=== PATIENT | male | born 1950 | race Caucasian/White ===

== ENCOUNTER 2019-01-01 09:47 | Emergency (ER) | payer BC, MEDICARE ==
[2019-01-01] MEDS ORDERED: Pepcid 20 MG VIAL IV ONE ×2 (10:02→10:14)
[2019-01-01] MEDS ORDERED: Sodium Chloride 0.9% 1000 ML 1,000 ML IV STA (10:02)
[2019-01-01] MEDS ORDERED: MORPHINE SULFATE 4 MG INJ IV ONE (10:02)
[2019-01-01] MEDS ORDERED: Zofran 4 MG/2 ML VIAL IV ONE (10:02)
[2019-01-01 10:11] LABS: Lactic Acid 1.9 (0.4-2.0)
[2019-01-01 10:12] LABS: BASOPHIL % 0.3 % (0.0-0.4); Basophil (Absolute #) 0.02 (0-0.4); Eosinophil % 4.5 % (0.00-5.0); Granulocyte Absolute (ANC) 3.61 (1.4-6.9); Granulocytes % 53.8 % (36.0-66.0); Hematocrit 50.3 % (42-50); Hemoglobin 17.6 gm/dl (12.5-18.0); Lymphocyte (Absolute #) 2.04 (1.0-4.6); Lymphocytes % 30.4 % (24.0-44.0); Mean Cell Volume 98.1 fl (78-100); Mean Corpuscular Hemoglobin 34.3 pg (26-32); Mean Platelet Volume 10.4 fl (6-9.5); Monocyte (Absolute #) 0.74 (0.0-1.3); Platelet Count 164 K/mm3 (150-450); Red Blood Count 5.13 M/mm3 (4.1-5.6); Red Cell Distribution Width 11.9 % (11.5-14.0); White Blood Count 6.7 K/mm3 (4.0-10.5)
--- NOTE | 2019-01-01 10:12 | ERPHSYRPT ---
- History of Present Illness Time Seen by Provider: 01/01/19 10:05 Historian: patient Exam Limitations: no limitations Physician History: Patient began having sudden, severe RUQ abdominal pain one hour prior to coming into the emergency department. Timing/Duration: today, hour(s) (1) Activities at Onset: none Quality: sharpness, stabbing Abdominal Pain Onset Location: RUQ Pain Radiation: no radiation Severity of Pain-Max: severe Severity of Pain-Current: moderate Modifying Factors: Improves With: nothing. Worsens With: breathing, defecating , eating, movement, rest, vomiting Associated Symptoms: nausea, vomiting, No back, No chest pain, No diaphoresis, No diarrhea, No fever/chills, No fatigue, No headache, No heartburn, No loss of appetite, No neck pain, No rash, No shortness of breath, No syncope, No testicular pain, No weakness Previous symptoms: no prior history Allergies/Adverse Reactions: No Known Drug Allergies Allergy (Unverified 01/01/19 10:31) Home Medications: Atorvastatin Calcium [Lipitor] 40 mg PO DAILY 01/01/19 [History] Doxazosin Mesylate [Cardura] 4 mg PO DAILY 01/01/19 [History] Empagliflozin/Metformin HCl [Synjardy 5-500 mg Tablet] 10 mg PO DAILY 01/01/19 [ History] Meloxicam 15 mg PO DAILY 01/01/19 [History] Omeprazole 20 mg PO DAILY 01/01/19 [History] Propranolol HCl 60 mg PO DAILY 01/01/19 [History] Tamsulosin HCl 0.4 mg PO DAILY 01/01/19 [History] Testosterone Cypionate 60 mg IJ WEEKLY 01/01/19 [History] Tramadol HCl 50 mg [Ultram 50 mg] 50 mg PO HS 01/01/19 [History] - Review of Systems Constitutional: No Fever, No Chills Eyes: No Symptoms Ears, Nose, & Throat: No Symptoms Respiratory: No Cough, No Dyspnea Cardiac: No Chest Pain, No Edema, No Syncope Abdominal/Gastrointestinal: Abdominal Pain, Nausea, Vomiting, No Diarrhea Genitourinary Symptoms: No Dysuria Musculoskeletal: No Back Pain, No Neck Pain Skin: No Rash Neurological: No Dizziness, No Focal Weakness, No Sensory Changes Psychological: No Symptoms, No Alcohol Abuse, No Anxiety Endocrine: No Polyuria, No Polydipsia Hematologic/Lymphatic: No Easy Bleeding, No Easy Bruising All Other Systems: Reviewed and Negative - Nursing Vital Signs Nursing Vital Signs: Initial Vital Signs Temperature 97.6 F 01/01/19 09:56 Pulse Rate 60 01/01/19 09:56 Respiratory Rate 18 01/01/19 09:56 Blood Pressure 173/91 01/01/19 09:56 O2 Sat by Pulse Oximetry 99 01/01/19 09:56 Pain Scale Pain Intensity 3 - Physical Exam General Appearance: no apparent distress, alert Eye Exam: PERRL/EOMI, eyes nml inspection, No scleral icterus Ears, Nose, Throat Exam: normal ENT inspection, pharynx normal, moist mucous membranes, No dry mucous membranes Neck Exam: normal inspection, non-tender, supple, full range of motion Respiratory Exam: normal breath sounds, lungs clear, No respiratory distress Cardiovascular Exam: regular rate/rhythm, normal heart sounds, normal peripheral pulses, capillary refill <2 sec Gastrointestinal/Abdomen Exam: soft, tenderness (RUQ), No distention, No mass, No guarding, No rebound, No hernia (bilateral inguinal and ventral areas of the abdomen are negative ) Back Exam: normal inspection, normal range of motion, No CVA tenderness, No vertebral tenderness Extremity Exam: normal inspection, normal range of motion, pelvis stable Neurologic Exam: alert, oriented x 3, cooperative, normal mood/affect, nml cerebellar function, sensation nml, No motor deficits Skin Exam: normal color, warm, dry - Course Nursing assessment & vital signs reviewed: Yes EKG Interpreted by Me: RATE (62), Sinus Rhythm, NORMAL AXIS, NORMAL INTERVALS, NORMAL QRS, NORMAL ST-T, Other (possible signs of olf inferior myocardial infarction, negative previous EKG for comparison) - CT Exams Abdomen/Pelvis CT Interpretation: Tele-radiologist Report, Other (per radiologist interpretation: The kidneys and ureter: There is mild right hydronephrosis and hydroureter to 4 mm right UVJ calculus which is present on the library assistant radiograph. There is evidence of right calyceal/forniceal rupture with focal fluid surrounding the proximal right ureter. I believe imaging, there is a long a region of low attenuation in the right renal pelvis extending into the proximal ureter which may secondary to extravasation of street at contrast done in the proximal ureter. There are punctate nonobstructive right and left renal calculi. There is a 3.3 cm right renal cyst. There is diverticulosis the left colon but mostly focally in the sigmoid. No evidence of appendicitis. Unremarkable intraperitoneal space with no free air or significant fluid collection. There is atherosclerotic disease involving the abdominal aorta and pelvis vessels about an aneurysm. Gallbladder, liver, pancreas, spleen and adrenals are negative for any acute abnormalities. bladder; moderately enlarged prostate; degenerative changes the lumbar spine; moderate-sized fat- containing left inguinal hernia. Overall impression: There is a junction of the right kidney from a 4 mm right UVJ calculus. There is evidence of extravasation of the contrast, as a rule and/or/or stent placement should be considered. Nonobstructing renal calculi.) Ordered Tests: Active Orders 24 hr Category Date Time Status EKG-ER Only STAT Care 01/01/19 10:02 Active IV Insertion STAT Care 01/01/19 10:02 Active NPO (ED) STAT Care 01/01/19 10:02 Active ABDOMEN AND PELVIS W CONTRAST [CT] Stat Exams 01/01/19 11:41 Taken AMYLASE Stat Lab 01/01/19 10:09 Completed CBC W DIFF Stat Lab 01/01/19 10:09 Completed CMP Stat Lab 01/01/19 10:09 Completed LIPASE Stat Lab 01/01/19 10:09 Completed Lactic Acid Stat Lab 01/01/19 10:02 Completed PROTIME WITH INR Stat Lab 01/01/19 10:09 Completed TROPONIN Q3H Lab 01/01/19 10:09 Completed TROPONIN Q3H Lab 01/01/19 13:15 Ordered TROPONIN Q3H Lab 01/01/19 16:15 Ordered TROPONIN Q3H Lab 01/01/19 19:15 Ordered TROPONIN Q3H Lab 01/01/19 22:15 Ordered UA W/RFX UR CULTURE Stat Lab 01/01/19 11:05 Completed Medication Summary Discontinued Medications Generic Name Dose Route Start Last Admin Trade Name Freq PRN Reason Stop Dose Admin Famotidine 20 mg 01/01/19 10:02 01/01/19 10:20 Pepcid 20 Mg Vial IV 01/01/19 10:03 20 mg STAT ONE Administration Famotidine Confirm 01/01/19 10:14 Pepcid 20 Mg Vial Administered 01/01/19 10:15 Dose 20 mg IV .STK-MED ONE Fentanyl Citrate 25 mcg 01/01/19 10:34 01/01/19 11:12 Sublimaze 100 Mcg/2 Ml IV 01/01/19 10:35 25 mcg STAT ONE Administration Fentanyl Citrate Confirm 01/01/19 11:10 Sublimaze 100 Mcg/2 Ml Administered 01/01/19 11:11 Dose 100 mcg .ROUTE .STK-MED ONE Sodium Chloride 1,000 mls @ 999 mls/hr 01/01/19 10:02 01/01/19 13:18 Sodium Chloride 0.9% 1000 Ml IV 01/01/19 11:02 Infused .Q1H1M STA Infusion Sodium Chloride Confirm 01/01/19 10:14 Sodium Chloride 0.9% 1000 Ml Administered 01/01/19 10:15 Dose 1,000 mls @ ud .ROUTE .STK-MED ONE Morphine Sulfate 4 mg 01/01/19 10:02 01/01/19 10:19 Morphine Sulfate 4 Mg Inj IV 01/01/19 10:03 4 mg STAT ONE Administration Morphine Sulfate Confirm 01/01/19 10:14 Morphine Sulfate 4 Mg Inj Administered 01/01/19 10:15 Dose 4 mg .ROUTE .STK-MED ONE Ondansetron HCl 4 mg 01/01/19 10:02 01/01/19 10:20 Zofran 4 Mg/2 Ml Vial IV 01/01/19 10:03 4 mg STAT ONE Administration Ondansetron HCl Confirm 01/01/19 10:13 Zofran 4 Mg/2 Ml Vial Administered 01/01/19 10:14 Dose 4 mg .ROUTE .STK-MED ONE Lab/Rad Data: Laboratory Result Diagrams 01/01/19 10:09 01/01/19 10:09 Laboratory Results 01/01/19 01/01/19 01/01/19 Range/Units 11:05 10:09 10:09 WBC (4.0-10.5) K/mm3 RBC (4.1-5.6) M/mm3 Hgb (12.5-18.0) gm/dl Hct (42-50) % MCV (78-100) fl MCH (26-32) pg MCHC (32-36) g/dl RDW (11.5-14.0) % Plt Count (150-450) K/mm3 MPV (6-9.5) fl Gran % (36.0-66.0) % Eos # (Auto) (0-0.5) Absolute Lymphs (auto) (1.0-4.6) Absolute Monos (auto) (0.0-1.3) Lymphocytes % (24.0-44.0) % Monocytes % (0.0-12.0) % Eosinophils % (0.00-5.0) % Basophils % (0.0-0.4) % Absolute Granulocytes (1.4-6.9) Basophils # (0-0.4) PT 11.8 (8.83-12.87) SECONDS INR 1.04 (0.8-3.0) Sodium (137-145) mmol/L Potassium (3.5-5.1) mmol/L Chloride (98-107) mmol/L Carbon Dioxide (22-30) mmol/L Anion Gap (5-15) MEQ/L BUN (9-20) mg/dL Creatinine (0.66-1.25) mg/dL Estimated GFR ML/MIN Glucose (74-106) mg/dL Lactic Acid (0.4-2.0) Calcium (8.4-10.2) mg/dL Total Bilirubin (0.2-1.3) mg/dL AST (17-59) U/L ALT (0-50) U/L Alkaline Phosphatase (38-126) U/L Troponin I < 0.012 (0.000-0.034) ng/mL Serum Total Protein (6.3-8.2) g/dL Albumin (3.5-5.0) g/dL Amylase (30-110) U/L Lipase (23-300) U/L Urine Color YELLOW (YELLOW) Urine Appearance CLEAR (CLEAR) Urine pH 8.0 (5-6) Ur Specific [place] 1.021 (1.005-1.025) Urine Protein NEGATIVE (Negative) Urine Ketones SMALL (NEGATIVE) Urine Blood NEGATIVE (0-5) Daniele/ul Urine Nitrite NEGATIVE (NEGATIVE) Urine Bilirubin NEGATIVE (NEGATIVE) Urine Urobilinogen NEGATIVE (0-1) mg/dL Ur Leukocyte Esterase NEGATIVE (NEGATIVE) Urine WBC (Auto) 0-2 (0-5) /HPF Urine RBC (Auto) 0-2 (0-2) /HPF U Epithel Cells (Auto) NONE (FEW) /HPF Urine Bacteria (Auto) NONE (NEGATIVE) /HPF Urine Culture Reflexed NO (NO) Urine Glucose >=500 (NEGATIVE) mg/dL 01/01/19 01/01/19 01/01/19 Range/Units 10:09 10:09 10:02 WBC 6.7 (4.0-10.5) K/mm3 RBC 5.13 (4.1-5.6) M/mm3 Hgb 17.6 (12.5-18.0) gm/dl Hct 50.3 H (42-50) % MCV 98.1 (78-100) fl MCH 34.3 H (26-32) pg MCHC 35.0 (32-36) g/dl RDW 11.9 (11.5-14.0) % Plt Count 164 (150-450) K/mm3 MPV 10.4 H (6-9.5) fl Gran % 53.8 (36.0-66.0) % Eos # (Auto) 0.30 (0-0.5) Absolute Lymphs (auto) 2.04 (1.0-4.6) Absolute Monos (auto) 0.74 (0.0-1.3) Lymphocytes % 30.4 (24.0-44.0) % Monocytes % 11.0 (0.0-12.0) % Eosinophils % 4.5 (0.00-5.0) % Basophils % 0.3 (0.0-0.4) % Absolute Granulocytes 3.61 (1.4-6.9) Basophils # 0.02 (0-0.4) PT (8.83-12.87) SECONDS INR (0.8-3.0) Sodium 142 (137-145) mmol/L Potassium 4.4 (3.5-5.1) mmol/L Chloride 103 (98-107) mmol/L Carbon Dioxide 25 (22-30) mmol/L Anion Gap 17.8 H (5-15) MEQ/L BUN 24 H (9-20) mg/dL Creatinine 0.82 (0.66-1.25) mg/dL Estimated GFR > 60.0 ML/MIN Glucose 159 H (74-106) mg/dL Lactic Acid 1.9 (0.4-2.0) Calcium 9.2 (8.4-10.2) mg/dL Total Bilirubin 1.20 (0.2-1.3) mg/dL AST 35 (17-59) U/L ALT 14 (0-50) U/L Alkaline Phosphatase 55 (38-126) U/L Troponin I (0.000-0.034) ng/mL Serum Total Protein 7.4 (6.3-8.2) g/dL Albumin 4.6 (3.5-5.0) g/dL Amylase 91 (30-110) U/L Lipase 92 (23-300) U/L Urine Color (YELLOW) Urine Appearance (CLEAR) Urine pH (5-6) Ur Specific [place] (1.005-1.025) Urine Protein (Negative) Urine Ketones (NEGATIVE) Urine Blood (0-5) Daniele/ul Urine Nitrite (NEGATIVE) Urine Bilirubin (NEGATIVE) Urine Urobilinogen (0-1) mg/dL Ur Leukocyte Esterase (NEGATIVE) Urine WBC (Auto) (0-5) /HPF Urine RBC (Auto) (0-2) /HPF U Epithel Cells (Auto) (FEW) /HPF Urine Bacteria (Auto) (NEGATIVE) /HPF Urine Culture Reflexed (NO) Urine Glucose (NEGATIVE) mg/dL - Progress Progress: unchanged, improved Progress Note: 01/01/19 10:34 No improvement with IV Morphine other than causing brief chest heaviness; IV Fentanyl will be tried 01/01/19 12:30 Patient resting comfortably with pain adequately controlled. Vitals have improved also. 01/01/19 13:03 Discussed the patient's case, lab results and CT scan with Dr Eason, Urologist. The extravasation that was seen is normal and can be seen on contrast studies and with no infection can be followed-up as an outpatient with Dr Eason in Dr Eason's office. 01/01/19 13:20 the patient's pain is adequately control, no acute abdominal findings on examination, lab work or CT scan are required further inpatient admission or immediate surgical or urological evaluation. Patient's blood pressure is better controlled with better pain control. Patient discharged home with outpatient followup. Discussed with Dr.: Other (Dr Eason, Urologist) Counseled pt/family regarding: lab results, diagnosis, need for follow-up, rad results - Departure Departure Disposition: Home Clinical Impression: Renal colic on right side, Ureterolithiasis, Hydroureter, right, Hydronephrosis of right kidney, Cyst of right kidney, Sigmoid diverticulosis, RUQ abdominal pain Hypertension Qualifiers: Hypertension type: essential hypertension Qualified Code(s): I10 - Essential ( primary) hypertension Condition: Good Critical Care Time: No Referrals: TREVA NIEVES MD [Primary Care Provider] - Follow Up with PCP/3 days BENITO EASON [COURTESY STAFF] - 01/02/19 (Urologist for your reference to follow-up the kidney stone) Instructions: Kidney Stones (DC), Acute Abdomen (Belly Pain), High Blood Pressure (DC), Diverticulosis (DC) Additional Instructions: follow up with urology referral on 01/02/2019. Return immediately back to return if any fevers, uncontrollable pain, uncontrollable nausea vomiting, new back pain, any chest pain, any shortness of breath, or any other concerning signs or symptoms not present at today's emergency department visit for immediate reevaluation in the emergency department. Do not take metformin( glucophage) for 2 days. Prescriptions: Ondansetron ODT 4 MG [Zofran Odt 4 mg] 4 mg PO Q6H PRN PRN #10 tab.rapdis PRN Reason: Nausea Oxycodone HCl/Acetaminophen [Percocet 5-325 mg Tablet] 1 each PO Q6H PRN PRN # 12 tablet MDD 4 PRN Reason: Pain
[2019-01-01] MEDS ORDERED: Zofran 4 MG/2 ML VIAL ONE (10:13)
[2019-01-01] MEDS ORDERED: MORPHINE SULFATE 4 MG INJ ONE (10:14)
[2019-01-01] MEDS ORDERED: Sodium Chloride 0.9% 1000 ML 1,000 ML ONE (10:14)
[2019-01-01 10:18] LABS: INR 1.04 (0.8-3.0); PROTIME 11.8 SECONDS (8.83-12.87)
[2019-01-01 10:23] LABS: ALBUMIN 4.6 g/dL (3.5-5.0); ALKALINE PHOSPHATASE 55 U/L (38-126); AMYLASE 91 U/L (30-110); ANION GAP 17.8 MEQ/L (5-15); BLOOD UREA NITROGEN 24 mg/dL (9-20); CHLORIDE 103 mmol/L (98-107); Calcium 9.2 mg/dL (8.4-10.2); Carbon Dioxide 25 mmol/L (22-30); Creatinine 1 0.82 mg/dL (0.66-1.25); Glucose 159 mg/dL (74-106); LIPASE 92 U/L (23-300); Potassium 4.4 mmol/L (3.5-5.1); SGOT/AST 35 U/L (17-59); SGPT/ALT 14 U/L (0-50); SODIUM 142 mmol/L (137-145); Total Protein 7.4 g/dL (6.3-8.2)
[2019-01-01] MEDS ORDERED: SUBLIMAZE 100 MCG/2 ML IV ONE (10:34)
[2019-01-01] MEDS ORDERED: SUBLIMAZE 100 MCG/2 ML ONE (11:10)
[2019-01-01 11:25] LABS: Appearance CLEAR (CLEAR); Bilirubin NEGATIVE (NEGATIVE); Blood NEGATIVE Ery/ul (0-5); Glucose >=500 mg/dL (NEGATIVE); Ketones SMALL (NEGATIVE); Leukocyte Esterase NEGATIVE (NEGATIVE); Nitrite NEGATIVE (NEGATIVE); Protein,Urine Dip NEGATIVE (Negative); RBC 0-2 /HPF (0-2); Specific Gravity 1.021 (1.005-1.025); Urobilinogen NEGATIVE mg/dL (0-1); WBC 0-2 /HPF (0-5)
[2019-01-01 12:34] VITALS: O2SAT 95
[2019-01-01 14:31] VITALS: BP 140/75; PULSE 87
--- NOTE | 2019-01-01 20:33 | XRAY ---
Indication: Right upper and right lower quadrant pain. Nausea and vomiting. Multiple contiguous axial images obtained through the abdomen and pelvis using 80 cc of Isovue-370 contrast only. Comparison: None. Lung bases demonstrate minimal bibasilar dependent atelectasis. No infiltrate or effusion. Heart is not enlarged. Noncontrasted stomach and bowel loops appear nonobstructed. Normal appendix. Scattered descending and sigmoid diverticulosis. There is a 4 mm right UVJ calculus. Proximal right ureter is prominent along with mild hydronephrosis and small perinephric fluid from pyelosinus reflux consistent with high-grade obstructive uropathy. Additional punctate calculus in each kidney and a 3.3 cm right lower renal cyst. Scattered calcified splenic granulomas and enlarged prostate gland. Remaining liver, gallbladder, pancreas, adrenal glands, and urinary bladder appear unremarkable. Mild scattered aortoiliac calcifications. No AAA or pathological retroperitoneal lymphadenopathy. Osseous structures intact with mild degenerative changes throughout the thoracolumbar spine. Moderate sized fatty left inguinal hernia Impression: 1. 4 mm right UVJ calculus producing high-grade obstruction as detailed. Additional bilateral renal micro-calculi and 3.3 cm right renal cyst. 2. Enlarged prostate gland, colonic diverticulosis, fatty left inguinal hernia, and evidence for old granulomatous disease. Comment: Preliminary interpretation was made by [facility]. No critical discrepancy. CTDI 23.45
== END 2019-01-01 14:31 | disposition home or self-care (01) ==
LOC: ED 09:47
DX: N23 Unspecified renal colic (principal); N13.2 Hydronephrosis with renal and ureteral calculous obstruction; N28.1 Cyst of kidney, acquired; K57.30 Diverticulosis of large intestine without perforation or abscess without bleeding; R10.11 Right upper quadrant pain; I10 Essential (primary) hypertension
CPT/HCPCS: 36415; 74177; 80053; 81001; 82150; 83605; 83690; 84484; 85025; 85610; 93005; 96360; 96374; 96375; 99284; J2270; J2405; J3010